=== PATIENT | male | born 1950 | race Caucasian/White ===

== ENCOUNTER 2018-09-17 13:20 | Outpatient (CLI) | payer OTHER, MEDICARE | END 2018-09-17 23:59 | disposition home or self-care (01) | LOC: CVU 13:20 | PROVIDERS: ATTEND Internal Medicine Cardiovascular Disease | DX: I35.0 Nonrheumatic aortic (valve) stenosis (principal) | CPT/HCPCS: 0399T; 93306 ==

== ENCOUNTER 2018-09-19 09:00 | Outpatient (CLI) | payer OTHER, MEDICARE | END 2018-09-19 23:59 | disposition home or self-care (01) | LOC: WOUND 09:00 | PROVIDERS: ATTEND Internal Medicine | DX: E11.622 Type 2 diabetes mellitus with other skin ulcer (principal); I87.312 Chronic venous hypertension (idiopathic) with ulcer of left lower extremity; L97.222 Non-pressure chronic ulcer of left calf with fat layer exposed; G47.33 Obstructive sleep apnea (adult) (pediatric); E66.01 Morbid (severe) obesity due to excess calories; R60.0 Localized edema; N40.1 Benign prostatic hyperplasia with lower urinary tract symptoms; Z68.39 Body mass index [BMI] 39.0-39.9, adult | CPT/HCPCS: 29581; 97597; 99214 ==

== ENCOUNTER 2019-02-21 15:59 | Emergency (ER) | payer MEDICARE, OTHER ==
[~2019-02-21] VITALS: Ht 177.8 cm; Wt 125.2 kg
[~2019-02-21 15:59] MED LIST: ASPI-515 PO; LISI-167 PO; TAMS0.4C2 PO
[2019-02-21 16:04] VITALS: BP 146/91
--- NOTE | 2019-02-21 16:28 | NUR ---
PT HERE FOR EPISTAXIS. STARTED 4 HOURS AGO. CONTROLLED AT THIS TIME. HAS HX SAME. STATES HE IS SWALLOWING BLOOD AT THIS TIME.
[2019-02-21] MEDS ORDERED: LIDOCAINE-MPF 1%, 5ML ONE (16:35)
[2019-02-21] MEDS ORDERED: PHENYLEPHRINE 10 MG/ML ONE (16:35)
[2019-02-21] MEDS ORDERED: PHENYLEPHRINE NASAL 1%, 15ML SPRAY ONE (16:35)
--- NOTE | 2019-02-21 16:46 | NUR ---
MD AT BEDSIDE NOW.
--- NOTE | 2019-02-21 17:18 | NUR ---
PT SITTING IN CHAIR. AWARE OF POC. NADN. DENIES NEEDS.
--- NOTE | 2019-02-21 17:33 | NUR ---
MD AT BEDSIDE REASSESSING PT NOW.
== END 2019-02-21 18:02 | disposition home or self-care (01) ==
LOC: ED 17:45
DX: R04.0 Epistaxis (principal); I34.1 Nonrheumatic mitral (valve) prolapse
CPT/HCPCS: 30901; 99284